=== PATIENT | female | born 1955 | race Caucasian/White ===

== ENCOUNTER 2017-05-24 08:18 | Inpatient (IN) | payer MEDICAID ==
[~2017-05-24] VITALS: Ht 162.6 cm; Wt 73.5 kg
[2017-05-24 08:26] VITALS: BP_SYST 157
[2017-05-24] MEDS ORDERED: DILTIAZEM HCL 25 MG/5 ML VIAL IVP ONE (09:00)
[2017-05-24 09:25] LABS: BASOPHILS % (AUTO) 0.3 % (0.0-2.0); EOSINOPHILS % (AUTO) 0.7 % (0.0-4.0); HEMATOCRIT 44.7 % (36-48); HEMOGLOBIN 15.1 g/dL (12.0-16.0); LYMPHOCYTES # (AUTO) 2.1 K/uL (1.0-5.5); LYMPHOCYTES % (AUTO) 29.6 % (20.5-51.5); MEAN CORPUSCULAR HEMOGLOBIN 32 pg (27-31); MEAN CORPUSCULAR HGB CONC 34 % (32-36); MEAN CORPUSCULAR VOLUME 94 fL (79.0-98.0); MONOCYTES # (AUTO) 0.7 K/uL (0.0-1.0); MONOCYTES % (AUTO) 9.8 % (1.7-9.3); NEUTROPHILS # (AUTO) 4.2 K/uL (1.8-7.7); NEUTROPHILS % (AUTO) 59.6 % (40.0-70.0); PLATELET COUNT (AUTO) 280 K/uL (130-430); RED BLOOD CELL COUNT(AUTO) 4.76 MIL/uL (4.2-6.2); RED CELL DISTRIBUTION WIDTH 12.9 % (9.0-15.0)
[2017-05-24 09:31] LABS: CREATININE 1.25 mg/dL (0.55-1.30)
[2017-05-24 09:35] LABS: ALBUMIN 3.9 g/dL (3.4-4.8); TOTAL BILIRUBIN 0.8 mg/dL (0.0-1.0)
[2017-05-24] MEDS ORDERED: IOHEXOL 350 mgI/mL, 150 ML INFUS..BTL IV ONE (09:44)
[2017-05-24 09:48] LABS: BILIRUBIN,URINE NEGATIVE (NEGATIVE); CLARITY/URINE CLEAR (CLEAR); COLOR,URINE YELLOW (YELLOW); GLUCOSE,URINE NEGATIVE (NEGATIVE); KETONES,URINE NEGATIVE (NEGATIVE); LEUKOCYTE ESTERASE ,URINE NEGATIVE (NEGATIVE); NITRITE, URINE NEGATIVE (NEGATIVE); PH,URINE 8.5 (5.0-8.0); PROTEIN URINE NEGATIVE (NEGATIVE); UROBILINOGEN,URINE 0.2 (0.2-1.0)
[2017-05-24 09:50] LABS: BLOOD, URINE TRACE (NEGATIVE)
[2017-05-24 09:52] LABS: PROTHROMBIN TIME 10.3 SECS (9.5-12.5)
[2017-05-24 09:57] LABS: BACTERIA,URINE FEW /HPF (None Seen); MUCUS,URINE None Seen /LPF (None Seen); RBC,URINE 0-3 /HPF (0-3); WBC,URINE 0-3 /HPF (0-3)
[2017-05-24] MEDS ORDERED: DILTIAZEM HCL 25 MG/5 ML VIAL IVP PRN (11:00)
[2017-05-24 11:22] VITALS: BP_SYST 136
[2017-05-24] MEDS ORDERED: HEPARIN SODIUM,PORCINE 2000 UNITS/0.4 ML BOLUS IVP PRN (16:00)
[2017-05-24] MEDS ORDERED: HEPARIN SODIUM,PORCINE 5000 UNITS/ML VIAL IVP ONE (16:00)
[2017-05-24] MEDS ORDERED: *HEPARIN PER PHARMACY XX PRN (16:00)
[2017-05-24] MEDS ORDERED: HEPARIN SODIUM,PORCINE 3000 UNITS/0.6 ML BOLUS IVP PRN (16:00)
[2017-05-24 16:40] VITALS: BP_SYST 100
[2017-05-24] MEDS: HEPARIN 25,000 UNITS/D5W 250ML 250 ML IV PRN (17:03)
[2017-05-24] MEDS: NACL 0.9% 1,000 ML IV SCH (17:04)
[2017-05-24] MEDS: DILTIAZEM HCL 30 MG TABLET PO SCH (17:53)
[2017-05-24 19:58] VITALS: BP_SYST 104
[2017-05-25] VITALS (7 sets, daily range): BP systolic 92–116
[2017-05-25] MEDS: HEPARIN 25,000 UNITS/D5W 250ML 250 ML IV PRN (02:01)
[2017-05-25] MEDS: DILTIAZEM HCL 30 MG TABLET PO SCH ×2 (05:54)
[2017-05-25 06:20] LABS: BASOPHILS % (AUTO) 0.4 % (0.0-2.0); EOSINOPHILS # (AUTO) 0.1 K/uL (0.0-0.4); EOSINOPHILS % (AUTO) 1.5 % (0.0-4.0); HEMATOCRIT 38.6 % (36-48); HEMOGLOBIN 13.2 g/dL (12.0-16.0); LYMPHOCYTES # (AUTO) 3.2 K/uL (1.0-5.5); LYMPHOCYTES % (AUTO) 34.9 % (20.5-51.5); MEAN CORPUSCULAR HEMOGLOBIN 32 pg (27-31); MEAN CORPUSCULAR HGB CONC 34 % (32-36); MEAN CORPUSCULAR VOLUME 95 fL (79.0-98.0); MONOCYTES # (AUTO) 0.7 K/uL (0.0-1.0); MONOCYTES % (AUTO) 7.9 % (1.7-9.3); NEUTROPHILS # (AUTO) 5.1 K/uL (1.8-7.7); NEUTROPHILS % (AUTO) 55.3 % (40.0-70.0); PLATELET COUNT (AUTO) 239 K/uL (130-430); RED BLOOD CELL COUNT(AUTO) 4.08 MIL/uL (4.2-6.2); RED CELL DISTRIBUTION WIDTH 13.1 % (9.0-15.0); WHITE BLOOD COUNT (AUTO) 9.1 K/uL (4.8-10.8)
[2017-05-25 06:48] LABS: POTASSIUM 3.7 mmol/L (3.5-5.1)
[2017-05-25 06:49] LABS: ALBUMIN 3.4 g/dL (3.4-4.8); CALCIUM 8.2 mg/dL (8.4-11.0); CREATININE 1.05 mg/dL (0.55-1.30); TOTAL BILIRUBIN 0.7 mg/dL (0.0-1.0)
[2017-05-25 06:51] LABS: FREE T4 (FREE THYROXINE) 0.7 ng/dL (0.6-1.6); THYROID STIMULATING HORMONE 5.04 uIu/mL (0.34-4.82)
[2017-05-25] MEDS: NACL 0.9% 1,000 ML IV SCH (07:00)
[2017-05-25] MEDS ORDERED: ASPIRIN 81 MG TAB.CHEW PO ONE (09:45)
[2017-05-25] MEDS ORDERED: DILTIAZEM HCL 120 MG CAP.SR.24H PO ONE (09:45)
[2017-05-25] MEDS ORDERED: DILT120C89 PO (13:45)
[2017-05-25] MEDS ORDERED: LEVO25TA58 PO (13:45)
[2017-05-25] MEDS ORDERED: ASPI-1063 PO (13:46)
[2017-05-26] MEDS ORDERED: DILTIAZEM HCL 120 MG CAP.SR.24H PO SCH (09:00)
[2017-05-26] MEDS ORDERED: ASPIRIN 81 MG TAB.CHEW PO SCH (09:00)
== END 2017-05-25 16:00 | disposition home or self-care (01) | DRG 201 ==
LOC: SED 08:18 → STU 10:57
PROVIDERS: ADMIT Internal Medicine; ATTEND Internal Medicine
DX: I48.0 Paroxysmal atrial fibrillation (principal); D68.69 Other thrombophilia; E03.9 Hypothyroidism, unspecified; E78.5 Hyperlipidemia, unspecified; Z90.710 Acquired absence of both cervix and uterus
CPT/HCPCS: 36415; 71010; 71275; 80053; 80061; 81000-TC; 83605; 83735-TC; 83880; 84439; 84443-TC; 84484; 85025; 85610-TC; 85730-TC; 87040-TC; 93005; 93306; 96374; 99285; J1644; J3490; J7030; Q9967

== ENCOUNTER 2023-04-05 23:44 | Emergency (ER) | payer OTHER, MEDICAID ==
[~2023-04-05] VITALS: Ht 162.6 cm; Wt 71.2 kg
[~2023-04-05 23:44] MED LIST: ASPI-1457 PO; DILT120C89 PO; LEVO25TA2 PO; UBID200C32 PO
[2023-04-05 23:52] VITALS: BP_SYST 150; PULSE 80; RESP 16; TEMP 97.6; O2SAT 98
[2023-04-06] MEDS ORDERED: IBUPROFEN 600 MG TABLET PO ONE (00:15)
[2023-04-06] MEDS ORDERED: IBUP-1969 PO (00:55)
[2023-04-06 01:15] VITALS: BP_SYST 147; PULSE 77; RESP 16; TEMP 97.7; O2SAT 97
== END 2023-04-06 01:15 | disposition home or self-care (01) ==
LOC: SED 23:44
DX: M25.511 Pain in right shoulder (principal); Z79.899 Other long term (current) drug therapy
CPT/HCPCS: 73030; 99283